=== PATIENT | female | born 1965 | race Caucasian/White ===

== ENCOUNTER 2017-02-25 19:31 | Emergency (ER) | payer OTHER ==
[~2017-02-25] VITALS: Ht 172.7 cm; Wt 54.0 kg
[~2017-02-25 19:31] MED LIST: CALCTAB5 PO; GLUCTAB7 PO; MULT-506 PO
[2017-02-25 19:41] VITALS: TEMP 36.6; Ht 172.7 cm; Wt 54.0 kg
[2017-02-25] MEDS ORDERED: XYLOCAINE 1%/SOD BICARB 20 ML VIAL INFIL STA (19:44)
[2017-02-25] MEDS ORDERED: DIPHTHERIA/TETANUS/PERTUSSIS 0.5 ML SYR/VIAL IM. ONE (19:45)
--- NOTE | 2017-02-25 19:51 | EMERGENCY ROOM VISIT NOTE ---
History Report prepared by Jarek: Samantha Browning Under the Supervision of: Dr. Mayo Butt M.D. First contact with patient: 19:35 Chief Complaint: FALL Stated Complaint: FALL, NOSE LAC. & FACIAL BRUISING History of Present Illness The patient is a 51 year old female who presents to the Emergency Room with complaints of an episode of a fall beginning just DRY FOLDER CLOTH. Per nursing staff, the patient was drinking alone downtown and stepped into a puddle and fell down face first. The patient complains of noes pain and facial bruising. She denies any loss of consciousness and new head pain. Source of History: patient, nursing staff Onset: just DRY FOLDER CLOTH Quality: other (fall) Timing: other (episode) Associated Symptoms: No LOC, No headache Note: The patient complains of noes pain and facial bruising. Review of Systems See HPI for pertinent positives & negatives. A total of 10 systems reviewed and were otherwise negative. Past Medical & Surgical Medical Problems: (1) Alcoholic (2) Upper GI bleed Family History No pertinent family history stated. Social History Smoking Status: Current Some Day Smoker Alcohol Use: heavy Drug Use: marijuana Marital Status: Housing Status: lives with family Occupation Status: employed Current/Historical Medications Scheduled Calcium (Caltrate), 600 MG PO DAILY Allergies Coded Allergies: Lactose Intolerance (GI) (Verified Allergy, Mild, GI SYMPTOMS, 02/25/17) GI Distress Penicillins (Unverified Allergy, Unknown, UNKNOWN, 02/25/17) Physical Exam Vital Signs Date Time Temp Pulse Resp B/P Pulse Ox O2 Delivery O2 Flow Rate FiO2 02/25/17 23:16 78 18 154/78 98 02/25/17 22:17 98 18 155/82 99 Room Air 02/25/17 20:56 63 18 155/98 100 Room Air 02/25/17 19:41 36.6 78 20 132/94 100 Room Air Physical Exam GENERAL: Patient is a healthy-appearing well-nourished, crying on examination HEAD: Normocephalic atraumatic. 2.6 cm laceration to the bridge of the nose EYES: Ocular movements intact pupils equal and react to light OROPHARYNX mucous membranes are moist no exudates present no erythema or edema present NECK: Supple no nuchal rigidity CHEST: Good equal expansion LUNGS: Clear and equal to auscultation CARDIAC: Normal S1 and S2 ABDOMEN: Soft nontender no guarding BACK: No CVA tenderness EXTREMITIES: No pain upon palpation normal muscle strength in all groups no clubbing cyanosis or edema NEURO: Patient is following commands is answering questions appropriately. Alert and oriented x3 Cranial Nerves 2-12 grossly intact Medical Decision & Procedures Medications Administered Medications (Trade) Dose Ordered Sig/Pam Route Start Time Stop Time Status Last Admin Dose Admin Diphtheria/ Pertussis/Tetanus Vacc (Adacel Inj) 0.5 ml ONCE ONCE IM. 02/25/17 19:45 02/25/17 19:46 DC 02/25/17 20:11 0.5 ML ED Course 1934: Past medical records reviewed. The patient was evaluated in room C7. A complete history and physical examination was performed. 1943: Lidocaine HCl 20ml INFIL, Adacel inj 0.5ml IM. 2316: Upon reexamination the patient is hemodynamically stable. I discussed results and treatment plan with the patient. She verbalizes agreement and understanding. The patient is ready for discharge. Medical Decision Differential diagnosis: Etiologies such as fracture, dislocation, intra-abdominal, pneumothorax, intrathoracic , intracranial, neurologic, as well as other traumatic pathologies were entertained. This is a 51-year-old female who presents emergency department after falling downtown having a laceration to her nose. The patient is grossly intoxicated. For this reason she was allowed to dry and rest in the emergency department for 4 hours. At the end of that time the laceration was repaired by Deandre Fontaine. Please see his note for details. The patient was given tetanus shot. After sometime intoxication did clear and the patient's showed up to take her home. The patient is neurologically intact. She is refusing a CAT scan has a GCS of 15. I believe that this is reasonable as the states that the patient is at her baseline. Impression Primary Impression: Laceration of nose Scribe Attestation The scribe's documentation has been prepared under my direction and personally reviewed by me in its entirety. I confirm that the note above accurately reflects all work, treatment, procedures, and medical decision making performed by me. Departure Information Dispostion Home / Self-Care Referrals Tyson Pineda M.D. (PCP) Forms HOME CARE DOCUMENTATION FORM, IMPORTANT VISIT INFORMATION Patient Instructions ED Head Injury Closed, ED Laceration Facial Sutr Tape, [facility] Additional Instructions Follow up with DR Pineda's office Sutures out in 7-10 days You have been examined and treated today on an emergency basis only. This is not a substitute for, or an effort to provide, complete comprehensive medical care. It is impossible to recognize and treat all injuries or illnesses in a single emergency department visit. It is therefore important that you follow up closely with your PCP. Call as soon as possible for an appointment. Thank you for your time and consideration. I look forward to speaking with you again soon. Please don't hesitate to call us if you have any questions. Problem Qualifiers Primary Impression: Laceration of nose Encounter type: initial encounter Qualified Codes: S01.21XA - Laceration without foreign body of nose, initial encounter
--- NOTE | 2017-02-25 23:09 | EMERGENCY ROOM VISIT NOTE ---
ED Visit Note I was approached by my attending physician and asked to perform primary wound closure for laceration to the nasal bridge. Please refer to his dictation for entire historical and physical examination information. Procedure as follows: Costs and benefits of performing primary wound closure versus no repair were discussed with the patient who verbalizes understanding. Verbal consent was obtained prior to performing the procedure. 1.0 cc of 1% buffered lidocaine was used to anesthetize the nasal laceration. The wound was cleansed and prepped in the typical sterile fashion utilizing normal saline and Betadine. The wound was sterilely draped. Once proper anesthetization was established, the wound was further examined and demonstrated a 1.5 center complex laceration to the nasal bridge. No deep structures appreciated. The wound was copiously irrigated with normal saline and Betadine. The wound was closed using 4 simple, 6-0 nylon sutures with the wound edges being well approximated. Patient tolerated the procedure well. No complications were met. The wound was cleansed and dressed with a Bacitracin dressing.
[2017-02-25 23:16] VITALS: BP 154/78; PULSE 78; O2SAT 98
== END 2017-02-25 23:18 | disposition home or self-care (01) ==
LOC: EDBD 19:31 → C.EDC 19:33
DX: S01.21XA Laceration without foreign body of nose, initial encounter (principal); W20.8XXA Other cause of strike by thrown, projected or falling object, initial encounter; F17.200 Nicotine dependence, unspecified, uncomplicated; Z23 Encounter for immunization; Z87.19 Personal history of other diseases of the digestive system; Z88.0 Allergy status to penicillin; Z91.011 Allergy to milk products